=== PATIENT | female | born 1955 | race Caucasian/White ===

== ENCOUNTER 2016-06-23 23:15 | Day surgery (SDC) | payer BC ==
--- NOTE | ~2016-06-23 | HP ---
PATIENT'S NAME: FLORA STOCK [facility] AGE: 61 Y [address] ROOM: [place] [address] [place] [facility] [place]: 06/24/2016 History & Physical DISCHARGE DATE: FAMILY PHYSICIAN: PHYSICIAN, UNKNOWN ATTENDING PHYSICIAN: Chaz Foley DATE OF SERVICE: 06/23/2016 TIME OF EVALUATION: 11:45 p.m. HISTORY OF PRESENT ILLNESS: Ms. Stock is a 61-year-old healthy white female three years status post a right total hip replacement, has done well with her total hip. Today with some positioning in the seat of the car, she dislocated the right hip. Has been over at the [facility], unsuccessful in getting it relocated close even under general anesthetic. Last ate about noon. MEDICATIONS: See list. ALLERGIES: NONE KNOWN. PAST MEDICAL HISTORY: Bipolar. REVIEW OF SYSTEMS: As above. FAMILY MEDICAL HISTORY: Unremarkable. PERSONAL SOCIAL HISTORY: Does not smoke. Drinks alcohol but none today. She lives with a friend in [place]. 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 PHYSICAL EXAMINATION: HEENT: Hears and sees. NECK: Nontender. BACK: Nontender. PELVIS: Nontender. SKIN: Right hip incision is healed. No redness or drainage. HEART: Pulse rate is regular. LUNGS: Able to take in a deep breath. PATIENT'S NAME: FLORA STOCK [facility] AGE: 61 Y [address] ROOM: [place] [address] LOCATION: [facility] [place] DATE: 06/24/2016 History & Physical DISCHARGE DATE: FAMILY PHYSICIAN: PHYSICIAN, UNKNOWN ATTENDING PHYSICIAN: Chaz Foley ABDOMEN: Soft, nontender. Right leg is short. Right leg is neurovascularly intact. DIAGNOSTIC DATA: X-rays show a right hip total hip replacement, is dislocated, no fracture or loosening. ASSESSMENT AND PLAN: Attempt at closed relocation of the right total hip replacement under good anesthetic. If unsuccessful, we will convert to open relocation. Risks, benefits, and alternatives have been discussed. CHAZ FOLEY MD DPM/modl /[id number]: [id number] T: [id number] HISTORY & PHYSICAL
--- NOTE | ~2016-06-23 | OR ---
PATIENT'S NAME: FLORA STOCK [facility] AGE: 61 Y [address] ROOM: [place] [address] [place] [facility] [place]: 06/24/[place] OR/Procedure Report DISCHARGE DATE: FAMILY PHYSICIAN: PHYSICIAN, UNKNOWN ATTENDING PHYSICIAN: Chaz Foley SURGEON: Chaz Foley MD SOFTWARE ANALYST: DATE OF PROCEDURE: 06/24/2016 DIAGNOSIS: Right total hip replacement, now dislocated. PROCEDURE: Closed relocation of right hip. ANESTHESIA: MAC with propofol. INDICATIONS: Ms Stock is 3 years status post right total hip replacement, has done very well. Really has had no pain in the hip, got into some awkward positions today and the hip dislocated. X-rays show a well-positioned, well- fixed acetabulum and femoral component. No fractures. We would expect to be able to relocate closed. If unsuccessful, we would convert to open. Risks, benefits, and alternatives have been discussed. DESCRIPTION OF PROCEDURE: Ms Stock was taken to the holding area. Placed on the radiolucent table with the fluoroscope, MAC anesthesia with propofol. After good level of anesthesia, the hip was gently manipulated and the hip was relocated. It was confirmed with the fluoroscope with AP and lateral views, it was concentric. There were no fractures. The hip was examined on a table, stable, placed in a hip abduction brace, discharged to home. Hip precautions. Tylenol or Percocet for new pain, we would expect to resolve quickly. Regular diet. Light activity. Continue her usual home medications. We will follow up with Dr. Foley on July 26, 2016, at 1 p.m. X-rays have been ordered at the [facility] at noon. X-rays for the right total hip replacement including AP of the pelvis and a lateral of the right hip. CHAZ FOLEY MD DPM/natalial /[id number] d: 06/24/16 0711 t: 06/24/16 1829, OPERATIVE SUMMARY
--- NOTE | ~2016-06-23 | ER ---
PATIENT'S NAME: FLORA MATOS [facility] AGE: 61 Y [address] ROOM: [place] [address] LOCATION: [facility] [place] ADMIT DATE: 06/24/2016 ER/Outpatient Report DISCHARGE DATE: FAMILY PHYSICIAN: PHYSICIAN, UNKNOWN ATTENDING PHYSICIAN: Dougie Foley CHIEF COMPLAINT: Hip dislocation. HISTORY OF PRESENT ILLNESS: The patient was transferred by ambulance from [place]. At [place] she was unable to have her hip reduced despite general anesthesia. She was transferred here to see Dr. Dougie Foley, and was taken through the ER for further evaluation. She states that she has had a couple of dislocations of her prosthetic hip previously. She is otherwise without significant concern today. Today, she was in her car and reached over sideways to try to get the object on the other side of the vehicle and felt her hip slipped down. It did not improve with resting. She went to the local hospital for evaluation and they were unable to get it fixed. She has no other concerns today. PAST MEDICAL HISTORY: As documented on the record and have been reviewed by me. SOCIAL HISTORY: As documented on the record and have been reviewed by me. MEDICATIONS: As documented on the record and have been reviewed by me. ALLERGIES: DOCUMENTED ON THE RECORD AND HAVE BEEN REVIEWED BY ME. REVIEW OF SYSTEMS: All systems reviewed and negative except as noted in HPI. PHYSICAL EXAMINATION: VITAL SIGNS: Blood pressure 148/82, pulse 72, respiratory rate 14, temp 97.9, and SpO2 is 99% on room air. Pain 3/10. GENERAL: Age appropriate female, in no obvious pain or distress. Resting comfortably on exam table. NEUROLOGIC: The patient is awake and alert. She is neurovascularly intact. No obvious abnormalities. HEENT: Unremarkable. PATIENT'S NAME: FLORA MATOS [facility] AGE: 61 Y [address] ROOM: [place] [address] LOCATION: [facility] [place] ADMIT DATE: 06/24/2016 ER/Outpatient Report DISCHARGE DATE: FAMILY PHYSICIAN: PHYSICIAN, UNKNOWN ATTENDING PHYSICIAN: Dougie Foley CHEST: Unremarkable. BACK: Unremarkable. EXTREMITIES: Notable for some tenderness at the right hip. The right lower extremity is shortened, compared to the left. NEUROVASCULAR: Intact. Able to move her ankle and has intact sensation throughout. SKIN: Warm, dry, and intact. Plain films of the right hip reveal a right prosthetic hip with superior dislocation. IMPRESSIONS: Dislocated prosthetic hip. EMERGENCY DEPARTMENT COURSE: The patient was seen and evaluated. Dr. Foley did evaluate the patient after x-rays were obtained. The patient will be taken to the operating room to optimize conditions for prosthetic hip relocation. MD NOHEMI WAGNER/vivian /[id number] d: 06/24/16 1218 t: 06/30/16 0932, OUTPATIENT REPORT
[2016-06-24] MEDS ORDERED: NORCO 7.5-3251 EACH PO (01:29)
== END 2016-06-24 | disposition disaster alternative care site (69) ==
LOC: GACC 23:15 → GSDC 06-24 00:14
PROC: 0SS Lower Joints, Reposition (ICD-10-PCS; principal; 2016-06-24)
DX: T84.020A Dislocation of internal right hip prosthesis, initial encounter (principal); F31.9 Bipolar disorder, unspecified
CPT/HCPCS: J2405; J7120

== ENCOUNTER → 2016-07-26 | Outpatient (CLI) | payer BC ==
[~2016-07-26] MED LIST: NORCO 7.5-3251 EACH PO
== END | disposition disaster alternative care site (69) ==
LOC: GRAD 10:48
DX: S73.004D Unspecified dislocation of right hip, subsequent encounter (principal); Z96.641 Presence of right artificial hip joint